=== PATIENT | female | born 1995 | race Caucasian/White ===

== ENCOUNTER 2016-12-02 15:00 | Emergency (ER) ==
[2016-12-02 15:43] LABS: MANUAL DIFF NEEDED? NO; URINE MICRO REVIEW NEEDED? NO; URINE SOURCE CLEAN CATCH
[2016-12-02 16:06] LABS: BASO% 0.2 % (0.0-0.8); EOS# 0.06 X1000 (0.0-0.7); EOS% 0.6 % (0.0-10.0); HEMATOCRIT 40.9 % (37.0-47.0); HEMOGLOBIN 13.4 g/dL (12.0-16.0); IMM GRAN# 0.02 X1000 (0.0-0.04); IMM GRAN% 0.2 % (0.0-0.5); LYMPH# 1.97 X1000 (1.2-3.4); LYMPH% 19.9 % (20.5-51.1); MCH 31.3 PG (27-31); MCHC 32.8 g/dL (33-37); MCV 95.6 FL (81-99); MONO# 0.46 X1000 (0.11-0.59); MONO% 4.6 % (1.7-9.3); MPV 9.7 FL (7.4-10.4); NEUT% 74.5 % (42.2-75.2); PLT 237 X1000 (130-400); RBC 4.28 XMIL (4.2-5.4)
[2016-12-02 16:09] LABS: AGAP 14; ALBUMIN 4.6 g/dL (3.5-5.0); ALKALINE PHOSPHATASE 77 U/L (32-104); BUN 13 mg/dL (8-22); CALCIUM 9.3 mg/dL (8.8-10.2); CHLORIDE 103 mmol/L (98-107); COSMO 276; GOT 12 U/L (10-30); GPT 12 U/L (10-36); POTASSIUM 4.5 mmol/L (3.5-5.1); SODIUM 138 mmol/L (136-145); TCO2 21 mmol/L (25-35); TOTAL BILIRUBIN 0.22 mg/dL (0.20-1.00); TOTAL PROTEIN 8.1 g/dL (6.3-8.3)
[2016-12-02 16:12] LABS: BILIRUBIN URINE NEGATIVE (NEGATIVE); BLOOD URINE NEGATIVE (NEGATIVE); COLOR STRAW; GLUCOSE URINE NEGATIVE (NEGATIVE); LEUKOCYTES URINE LARGE (NEGATIVE); NITRITE URINE NEGATIVE (NEGATIVE); PROTEIN URINE NEGATIVE (NEGATIVE); SP GRAVITY URINE 1.007; TURBIDITY URINE HAZY (CLEAR); UROBILINOGEN URINE NORMAL (NORMAL)
[2016-12-02 16:13] LABS: UR EPITHELIAL CELLS <10 /HPF (<10); URINE BACTERIA 3+ /HPF; URINE CULTURE NEEDED? YES; URINE RBC <10 /HPF (<10); URINE WBC TNTC /HPF (<10)
[2016-12-02 16:19] LABS: UR AMPHETAMINES QUAL NONE DETECTED (NONE DETECT); UR BARBITUATES QUAL NONE DETECTED (NONE DETECT); UR BENZODIAZEPIN QUAL NONE DETECTED (NONE DETECT); UR CANNABINOIDS QUAL PRESUMPTIVE POSITIVE (NONE DETECT); UR COCAINE QUAL NONE DETECTED (NONE DETECT); UR METHADONE QUAL NONE DETECTED (NONE DETECT); UR OPIATES QUAL NONE DETECTED (NONE DETECT); UR OXYCODONE QUAL NONE DETECTED (NONE DETECT); UR PCP QUAL NONE DETECTED (NONE DETECT)
[2016-12-02 16:29] LABS: FREE T4 1.09 ng/dL (0.93-1.70)
--- NOTE | 2016-12-02 16:40 | PROVIDER DOCUMENTATION ---
HPI-Psychological Disorder - History of Present Illness-Psych Onset/Duration: reports: unsure Timing: reports: still present Severity: reports: mild Situational problems related to:: reports: son Psychiatric Complaints: reports: anxiety, depressed Previous psych related hospitalizations?: No Similar Symptoms Previously?: No Recently seen or treated by another doctor?: No - Suicidal Ideation Suicide Risk Assessment: depressed Clinician's estimation of suicide risk?: low risk <Kait Lemos - Last Filed: 12/02/16 17:45> <Tim Gusman - Last Filed: 12/02/16 20:54> <Stephan Shepherd - Last Filed: 12/03/16 00:25> - General Chief Complaint: Psych Stated Complaint: SUICIDAL THOUGHTS Time Seen by Provider: 12/02/16 15:27 Allergies/Adverse Reactions: Patient Allergies Allergy/AdvReac Type Severity Reaction Status Date / Time No Known Allergies Allergy Verified 04/15/15 07:08 Home Medications: Home Medication List Medication Instructions Recorded Confirmed Last Taken Type No Home Medications 12/02/16 12/02/16 Unknown History - History of Present Illness-Psych Nature of Presenting Problem: Pt is a 21 yof who came to the ED with a cc of SI and depression. Pt reports she had a baby September 07 but got arrested October 05 for being drunk in public. Pt reports her baby got taken away form her, she lost her apartment, and everything else. Pt reports [facility] said her baby will be able to be placed for adoption in January. Pt is just overwhelmed and feels like they aren't giving her a chance. (Kait Lemos) Review of Systems - Adult - REVIEW OF SYSTEMS - ADULT Constitutional: denies: chills, fever Eyes: denies: decreased vision, double vision Ears, Nose, Mouth & Throat: reports: no symptoms reported Cardiovascular: reports: no symptoms reported Respiratory: reports: no symptoms reported Gastrointestinal: denies: diarrhea, nausea, vomiting Genitourinary: reports: no symptoms reported Musculoskeletal: reports: no symptoms reported Integumentary: reports: no symptoms reported Neurological: reports: no symptoms reported Psychiatric: reports: anxiety, depression, suicidal thoughts. denies: alcohol/ drug dependence, emotional problems, insomnia Endocrine: reports: no symptoms reported Hematologic/Lymphatic: reports: no symptoms reported Allergic/Immunologic: reports: no symptoms reported All Other Systems: Reviewed and Negative <Kait Lemos - Last Filed: 12/02/16 17:45> Past History - Adult - PAST MEDICAL HISTORY-ADULT Review of Records: reports: Old Records Reviewed, Nursing Assessment Review Major Childhood Illnesses: reports: denies history Cardiovascular: reports: denies history Respiratory: reports: denies history Gastrointestinal: reports: denies history (hepatitis), other Obstetrical/Gynecological: reports: denies history Genitourinary: reports: denies history Musculoskeletal: reports: denies history Neurological: reports: other (migraines) Endocrine/Immune: reports: denies history Other Conditions: reports: denies history - PRIOR SURGERIES/PROCEDURES Surgical/Procedure History: reports: none - FAMILY HISTORY Family History: reviewed, not pertinent <AmintaKait - Last Filed: 12/02/16 17:45> Physical Exam-Psych Focus - Physical Exam-Psych Appearance: appropriate insight, anxious Neurological: alert, anxious Behavior/Eye Contact/Speech: cooperative, good eye contact Thoughts/Hallucinations: normal thought pattern HENMT: normocephalic/atraumatic, moist mucous membranes Neck: non-tender, full range of motion Respiratory: chest non-tender, lungs clear, normal breath sounds Cardiovascular: normal peripheral pulses, regular rate, rhythm, no edema, no gallop, no JVD, no murmur Abdominal Exam: normal bowel sounds, non tender Lymphatic: no adenopathy Back Exam: normal inspection, no CVA tenderness, no vertebral tenderness Extremity: non-tender, normal gait Integumentary: normal turgor <Kait Lemos - Last Filed: 12/02/16 17:45> Progress - REASSESSMENT Reassessment #1 Time Reassessed: 16:56 (calling Henry Sahu) - CHANGE OF SHIFT REPORT (ED Provider) Report Given and Care Transferred to:: Dr. Gusman Time of Transfer: 17:45 <Kait Lemos - Last Filed: 12/02/16 17:45> - REASSESSMENT Reassessment #1 Time Reassessed: 20:55 (denice sahu did evalution -waiting for disposition) Status: improving <Tim Gusman - Last Filed: 12/02/16 20:54> - CHANGE OF SHIFT REPORT (ED Provider) Report Given and Care Transferred to:: Dr. Gusman Time of Transfer: 18:00 Items Pending: Physician Consult/Arrival <Stephan Shepherd - Last Filed: 12/03/16 00:25> - PLAN OF CARE/RESULTS Progress/Plan/Lab Results: Vital Signs - 24 hr 12/02/16 15:19 Temperature 97.4 F L Pulse Rate 97 H Respiratory 18 Rate Blood Pressure 127/82 O2 Sat by Pulse 100 Oximetry Orders Category Date Time Status ED: Urine Bedside ORDERED Care 12/02/16 15:41 Active Regular Diet Diet 12/02/16 15:44 Active ACETAMINOPHEN [TDM] Stat Lab 12/02/16 16:11 Uncollected ALCOHOL BLOOD Stat Lab 12/02/16 15:25 Completed CBC WITH ELECTRONIC DIFF [HEME] Stat Lab 12/02/16 15:25 Completed COMPREHENSIVE METABOLIC PANEL [CHEM] Stat Lab 12/02/16 15:25 Completed FREE T4 Stat Lab 12/02/16 15:25 Completed SALICYLATES [TDM] Stat Lab 12/02/16 16:11 Uncollected TSH Stat Lab 12/02/16 15:25 Completed URINALYSIS W/POSS RFLX CULT [URINALYSIS] Stat Lab 12/02/16 15:25 Completed URINE DRUG SCREEN Stat Lab 12/02/16 15:25 Completed VITAMIN B12 Stat Lab 12/02/16 15:25 Completed Laboratory Tests 12/02/16 12/02/16 12/02/16 15:25 15:25 15:25 WBC 9.91 RBC 4.28 Hgb 13.4 Hct 40.9 MCV 95.6 MCH 31.3 H MCHC 32.8 L RDW Std Deviation 13.9 Plt Count 237 MPV 9.7 Immature Gran % (Auto) 0.2 Neut % (Auto) 74.5 Lymph % (Auto) 19.9 L [place] % (Auto) 4.6 Eos % (Auto) 0.6 Baso % (Auto) 0.2 Immature Gran # (Auto) 0.02 Neut # (Auto) 7.38 H Lymph # (Auto) 1.97 [place] # (Auto) 0.46 Eos # (Auto) 0.06 Baso # (Auto) 0.02 Sodium 138 Potassium 4.5 Chloride 103 Carbon Dioxide 21 L Anion Gap 14 BUN 13 Creatinine 0.7 Estimated GFR/1.73 m2 > 60 BUN/Creatinine Ratio 19 Glucose 105 H Calculated Osmolality 276 Calcium 9.3 Total Bilirubin 0.22 AST 12 ALT 12 Alkaline Phosphatase 77 Total Protein 8.1 Albumin 4.6 Globulin 3.5 Albumin/Globulin Ratio 1.3 Vitamin B12 TSH Free T4 Urine Source Urine Color Urine Turbidity Urine pH Ur Specific [place] Urine Protein Ur Glucose (Stick) Ur Ketones (Stick) Urine Blood Urine Nitrite Urine Bilirubin Urobilinogen Dipstick Urine Leukocytes Urine WBC (Auto) Urine RBC (Auto) U Epithel Cells (Auto) Urine Bacteria (Auto) Urine Opiates Screen Ur Oxycodone Screen Ur Methadone, Qual Ur Barbiturates Screen Ur Phencyclidine Scrn Ur Amphetamines Screen U Benzodiazepines Scrn Urine Cocaine Screen U Cannabinoids Screen Plasma/Serum Ethyl Alc 12/02/16 12/02/16 12/02/16 15:25 15:25 15:25 WBC RBC Hgb Hct MCV MCH MCHC RDW Std Deviation Plt Count MPV Immature Gran % (Auto) Neut % (Auto) Lymph % (Auto) [place] % (Auto) Eos % (Auto) Baso % (Auto) Immature Gran # (Auto) Neut # (Auto) Lymph # (Auto) [place] # (Auto) Eos # (Auto) Baso # (Auto) Sodium Potassium Chloride Carbon Dioxide Anion Gap BUN Creatinine Estimated GFR/1.73 m2 BUN/Creatinine Ratio Glucose Calculated Osmolality Calcium Total Bilirubin AST ALT Alkaline Phosphatase Total Protein Albumin Globulin Albumin/Globulin Ratio Vitamin B12 265 TSH 1.43 Free T4 1.09 Urine Source CLEAN CATCH Urine Color STRAW Urine Turbidity HAZY Urine pH 5.0 Ur Specific [place] 1.007 Urine Protein NEGATIVE Ur Glucose (Stick) NEGATIVE Ur Ketones (Stick) NEGATIVE Urine Blood NEGATIVE Urine Nitrite NEGATIVE Urine Bilirubin NEGATIVE Urobilinogen Dipstick NORMAL Urine Leukocytes LARGE A Urine WBC (Auto) TNTC A Urine RBC (Auto) <10 U Epithel Cells (Auto) <10 Urine Bacteria (Auto) 3+ Urine Opiates Screen NONE DETECTED Ur Oxycodone Screen NONE DETECTED Ur Methadone, Qual NONE DETECTED Ur Barbiturates Screen NONE DETECTED Ur Phencyclidine Scrn NONE DETECTED Ur Amphetamines Screen NONE DETECTED U Benzodiazepines Scrn NONE DETECTED Urine Cocaine Screen NONE DETECTED U Cannabinoids Screen PRESUMPTIVE POSITIVE A Plasma/Serum Ethyl Alc (Aminta,Kait) Vital Signs - 24 hr 12/02/16 12/02/16 15:19 19:47 Temperature 97.4 F L 97.8 F Pulse Rate 97 H 70 Respiratory 18 18 Rate Blood Pressure 127/82 130/116 O2 Sat by Pulse 100 100 Oximetry Orders Category Date Time Status ED: Urine Bedside ORDERED Care 12/02/16 15:41 Active Regular Diet Diet 12/02/16 15:44 Active ACETAMINOPHEN [TDM] Stat Lab 12/02/16 15:23 Completed ALCOHOL BLOOD Stat Lab 12/02/16 15:25 Completed CBC WITH ELECTRONIC DIFF [HEME] Stat Lab 12/02/16 15:25 Completed COMPREHENSIVE METABOLIC PANEL [CHEM] Stat Lab 12/02/16 15:25 Completed FREE T4 Stat Lab 12/02/16 15:25 Completed SALICYLATES [TDM] Stat Lab 12/02/16 15:23 Completed TSH Stat Lab 12/02/16 15:25 Completed URINALYSIS W/POSS RFLX CULT [URINALYSIS] Stat Lab 12/02/16 15:25 Completed URINE CULTURE [RM] Routine Lab 12/02/16 17:18 Received URINE DRUG SCREEN Stat Lab 12/02/16 15:25 Completed VITAMIN B12 Stat Lab 12/02/16 15:25 Completed Alprazolam [Xanax] Med 12/02/16 20:20 Discontinued 0.5 mg PO NOW ONE Levofloxacin [Levaquin] Med 12/02/16 16:49 Discontinued 750 mg PO NOW ONE Laboratory Tests 12/02/16 12/02/16 12/02/16 15:23 15:25 15:25 WBC 9.91 RBC 4.28 Hgb 13.4 Hct 40.9 MCV 95.6 MCH 31.3 H MCHC 32.8 L RDW Std Deviation 13.9 Plt Count 237 MPV 9.7 Immature Gran % (Auto) 0.2 Neut % (Auto) 74.5 Lymph % (Auto) 19.9 L [place] % (Auto) 4.6 Eos % (Auto) 0.6 Baso % (Auto) 0.2 Immature Gran # (Auto) 0.02 Neut # (Auto) 7.38 H Lymph # (Auto) 1.97 [place] # (Auto) 0.46 Eos # (Auto) 0.06 Baso # (Auto) 0.02 Sodium Potassium Chloride Carbon Dioxide Anion Gap BUN Creatinine Estimated GFR/1.73 m2 BUN/Creatinine Ratio Glucose Calculated Osmolality Calcium Total Bilirubin AST ALT Alkaline Phosphatase Total Protein Albumin Globulin Albumin/Globulin Ratio Vitamin B12 TSH Free T4 Urine Source Urine Color Urine Turbidity Urine pH Ur Specific [place] Urine Protein Ur Glucose (Stick) Ur Ketones (Stick) Urine Blood Urine Nitrite Urine Bilirubin Urobilinogen Dipstick Urine Leukocytes Urine WBC (Auto) Urine RBC (Auto) U Epithel Cells (Auto) Urine Bacteria (Auto) Salicylates < 3.00 L Urine Opiates Screen Ur Oxycodone Screen Ur Methadone, Qual Acetaminophen < 1.2 L Ur Barbiturates Screen Ur Phencyclidine Scrn Ur Amphetamines Screen U Benzodiazepines Scrn Urine Cocaine Screen U Cannabinoids Screen Plasma/Serum Ethyl Alc 12/02/16 12/02/16 12/02/16 15:25 15:25 15:25 WBC RBC Hgb Hct MCV MCH MCHC RDW Std Deviation Plt Count MPV Immature Gran % (Auto) Neut % (Auto) Lymph % (Auto) [place] % (Auto) Eos % (Auto) Baso % (Auto) Immature Gran # (Auto) Neut # (Auto) Lymph # (Auto) [place] # (Auto) Eos # (Auto) Baso # (Auto) Sodium 138 Potassium 4.5 Chloride 103 Carbon Dioxide 21 L Anion Gap 14 BUN 13 Creatinine 0.7 Estimated GFR/1.73 m2 > 60 BUN/Creatinine Ratio 19 Glucose 105 H Calculated Osmolality 276 Calcium 9.3 Total Bilirubin 0.22 AST 12 ALT 12 Alkaline Phosphatase 77 Total Protein 8.1 Albumin 4.6 Globulin 3.5 Albumin/Globulin Ratio 1.3 Vitamin B12 265 TSH 1.43 Free T4 1.09 Urine Source CLEAN CATCH Urine Color STRAW Urine Turbidity HAZY Urine pH 5.0 Ur Specific [place] 1.007 Urine Protein NEGATIVE Ur Glucose (Stick) NEGATIVE Ur Ketones (Stick) NEGATIVE Urine Blood NEGATIVE Urine Nitrite NEGATIVE Urine Bilirubin NEGATIVE Urobilinogen Dipstick NORMAL Urine Leukocytes LARGE A Urine WBC (Auto) TNTC A Urine RBC (Auto) <10 U Epithel Cells (Auto) <10 Urine Bacteria (Auto) 3+ Salicylates Urine Opiates Screen Ur Oxycodone Screen Ur Methadone, Qual Acetaminophen Ur Barbiturates Screen Ur Phencyclidine Scrn Ur Amphetamines Screen U Benzodiazepines Scrn Urine Cocaine Screen U Cannabinoids Screen Plasma/Serum Ethyl Alc 12/02/16 15:25 WBC RBC Hgb Hct MCV MCH MCHC RDW Std Deviation Plt Count MPV Immature Gran % (Auto) Neut % (Auto) Lymph % (Auto) [place] % (Auto) Eos % (Auto) Baso % (Auto) Immature Gran # (Auto) Neut # (Auto) Lymph # (Auto) [place] # (Auto) Eos # (Auto) Baso # (Auto) Sodium Potassium Chloride Carbon Dioxide Anion Gap BUN Creatinine Estimated GFR/1.73 m2 BUN/Creatinine Ratio Glucose Calculated Osmolality Calcium Total Bilirubin AST ALT Alkaline Phosphatase Total Protein Albumin Globulin Albumin/Globulin Ratio Vitamin B12 TSH Free T4 Urine Source Urine Color Urine Turbidity Urine pH Ur Specific [place] Urine Protein Ur Glucose (Stick) Ur Ketones (Stick) Urine Blood Urine Nitrite Urine Bilirubin Urobilinogen Dipstick Urine Leukocytes Urine WBC (Auto) Urine RBC (Auto) U Epithel Cells (Auto) Urine Bacteria (Auto) Salicylates Urine Opiates Screen NONE DETECTED Ur Oxycodone Screen NONE DETECTED Ur Methadone, Qual NONE DETECTED Acetaminophen Ur Barbiturates Screen NONE DETECTED Ur Phencyclidine Scrn NONE DETECTED Ur Amphetamines Screen NONE DETECTED U Benzodiazepines Scrn NONE DETECTED Urine Cocaine Screen NONE DETECTED U Cannabinoids Screen PRESUMPTIVE POSITIVE A Plasma/Serum Ethyl Alc (Stephan Shepherd) Departure <Kait Lemos - Last Filed: 12/02/16 17:45> - Departure Time of Disposition Order: 20:54 Certified Medical Emergency: Emergent <Tim Gusman - Last Filed: 12/02/16 20:54> - Departure Time of Disposition Order: 00:25 Certified Medical Emergency: Emergent <Stephan Shepherd - Last Filed: 12/03/16 00:25> - Departure DIAGNOSIS: Anxiety and depression Depression Qualifiers: Depression Type: unspecified Qualified Code(s): F32.9 - Major depressive disorder, single episode, unspecified Disposition: [facility] Condition: Stable Referrals: None,PCP [Primary Care Provider] - Attestation - Scribe Verification/Attestation Scribe:: Kait Lemos Acting as Scribe for:: Avis Holcomb Scribe documention review:: This chart was documented by a scribe and accurately reflects the service the provider performed and the decisions made by the provider. - Scribe Verification/Attestation #2 Shift Change Time: 17:45 Scribe Name: Stephan Shepherd Acting as Scribe for:: Tim Gusman <Kait Lemos - Last Filed: 12/02/16 17:45> - Scribe Verification/Attestation Scribe:: Stephan Shepherd Acting as Scribe for:: Tim Gusman Scribe documention review:: This chart was documented by a scribe and accurately reflects the service the provider performed and the decisions made by the provider. <Stephan Shepherd - Last Filed: 12/03/16 00:25> Physician Attestation
[2016-12-02] MEDS ORDERED: LEVAQUIN PO ONE (16:49)
[2016-12-02 17:14] LABS: ACETAMINOPHEN < 1.2 ug/mL (10-30)
[2016-12-02] MEDS ORDERED: XANAX PO ONE (20:20)
[2016-12-03 01:16] VITALS: BP 125/98
== END 2016-12-03 01:08 ==
LOC: ED 15:00
DX: F41.9 Anxiety disorder, unspecified (principal); F32.9 Major depressive disorder, single episode, unspecified
CPT/HCPCS: 36415; 80053; 81001; 81025; 82607; 84439; 84443; 85025; 87088; 99285; G0480; 80320; 80324; 80329; 80345; 80346; 80349; 80353; 80358; 80361; 80365; 83992